=== PATIENT | female | born 1990 ===

== ENCOUNTER 2024-07-06 13:15 | Inpatient (IN) | payer OTHER ==
[~2024-07-06] VITALS: Ht 152.4 cm; Wt 74.8 kg
[2024-07-16] VITALS (9 sets, daily range): BP systolic 104–127; BP diastolic 68–84
[2024-07-16] MEDS ORDERED: AMPICILLIN SODIUM 2,000 MG VIAL ONE (06:21)
[2024-07-16] MEDS ORDERED: OXYTOCIN 20 UNITS/500ML RL PIGGYBAG IV ONE (06:25)
[2024-07-16] MEDS ORDERED: AMPICILLIN SODIUM 2,000 MG VIAL IV STA (06:50)
[2024-07-16] MEDS ORDERED: AMPICILLIN SODIUM 1,000 MG VIAL IV SCH ×2 (06:51→09:00)
[2024-07-16] MEDS ORDERED: PRENATAL TABLE1 EAC5 PO (06:54)
[2024-07-16] MEDS ORDERED: OXYTOCIN 500 ML IV ONE (07:00)
[2024-07-16] MEDS ORDERED: RINGERS SOLUTION,LACTATED 1,000 ML IV SCH (07:00)
[2024-07-16 07:24] LABS: URINE APPEARANCE Clear; URINE BILIRRUBIN Negative (NEGATIVE); URINE BLOOD Negative; URINE COLOR Yellow; URINE GLUCOSE Negative (NEGATIVE); URINE KETONE Negative (NEGATIVE); URINE LEUKOCYTE Trace; URINE NITRATE Negative; URINE PROTEIN Trace (NEGATIVE)
[2024-07-16 07:25] LABS: URINE BACTERIA 341.4 uL (0.0-1933); URINE EPITHELIAL CELLS 68.6 uL (0.0-38.8); URINE RBC 10.8 uL (0.0-20.8); URINE WBC 17.6 uL (0.0-23.2)
[2024-07-16 07:31] LABS: HEMATOCRIT 34.4 % (36.0-45.00); HEMOGLOBIN 12.1 g/dL (12.0-15.00); MEAN CELL VOLUME 93.5 fL (80.00-100.00); MEAN CORPUSCULAR HEMOGLOBIN 32.9 pg (27.00-32.0); MEAN CORPUSCULAR HGB CONC 35.1 g/dl (32.0-36.0); PLATELET COUNT 215 K/uL (150-450); RED BLOOD COUNT 3.68 M/uL (4.00-6.00); RED CELL DISTRIBUTION WIDTH 12.7 % (11.5-14.5)
[2024-07-16 07:57] LABS: INR 0.94; PARTIAL THROMBOPLASTIN TIME 28.1 SECONDS (22.0-34.0); PROTHROMBIN TIME 10.3 SECONDS (9.0-11.5)
[2024-07-16 08:13] LABS: ALBUMIN 2.6 gm/dL (3.4-5.0); BILIRUBIN TOTAL 0.44 mg/dL (0.3-1.2); CALCIUM 9.6 mg/dL (8.5-10.1); CREATININE SERUM 0.73 mg/dL (0.55-1.02); GFR 92.99; GLOBULINA 3.5 G/DL (2.4-3.5); POTASSIUM 4.17 mEq/L (3.5-5.1); TOTAL PROTEIN 6.1 gm/dL (6.4-8.2)
[2024-07-16 08:36] LABS: URINE CAST 0.61 uL (0.0-1.40); URINE CRYSTALS FEW /HPF
[2024-07-16] MEDS ORDERED: CHLORHEXIDINE GLUCONATE 120 ML BOTTLE TOP ONE (09:30)
[2024-07-16] MEDS ORDERED: ERYTHROMYCIN BASE 1 GM TUBE OP ONE (09:30)
[2024-07-16] MEDS ORDERED: OXYTOCIN 1,000 ML IV SCH (09:30)
[2024-07-16] MEDS ORDERED: OxyCODONE HCL/APAP UD (PERCOCET) PO PRN (10:15)
[2024-07-16] MEDS ORDERED: ACETAMINOPHEN 325 MG TABLET PO PRN (10:15)
[2024-07-16] MEDS ORDERED: BENZOCAINE/MENTHOL 90 ML BOTTLE TOP SCH (13:00)
[2024-07-16] MEDS ORDERED: HYDROCORTISONE 2.5% 30 GM TUBE RECTAL SCH (13:00)
[2024-07-17] VITALS: BP 104/65
[2024-07-17 02:22] LABS: HEMATOCRIT 37.1 % (36.0-45.00); HEMOGLOBIN 12.7 g/dL (12.0-15.00); MEAN CELL VOLUME 93.8 fL (80.00-100.00); MEAN CORPUSCULAR HEMOGLOBIN 32.2 pg (27.00-32.0); MEAN CORPUSCULAR HGB CONC 34.3 g/dl (32.0-36.0); PLATELET COUNT 212 K/uL (150-450); RED BLOOD COUNT 3.96 M/uL (4.00-6.00); RED CELL DISTRIBUTION WIDTH 13.1 % (11.5-14.5)
[2024-07-17 09:09] VITALS: BP 125/85
[2024-07-17 17:00] VITALS: BP 125/80
[2024-07-18 02:26] VITALS: BP 138/88
[2024-07-18 09:00] VITALS: BP 118/80
== END 2024-07-18 13:07 | disposition home or self-care (01) | DRG 807 ==
LOC: OB/GYN 07-16 05:19 → LDR 07-16 05:19 → OB/GYN 07-16 10:55
PROVIDERS: ADMIT Specialist; ATTEND Specialist
PROC: 10E0XZZ Delivery of Products of Conception, External Approach (ICD-10-PCS; principal; 2024-07-16)
PROC: 4A1HXCZ Monitoring of Products of Conception, Cardiac Rate, External Approach (ICD-10-PCS; 2024-07-17)
DX: O99.824 Streptococcus B carrier state complicating childbirth (principal); Z37.0 Single live birth; Z3A.39 39 weeks gestation of pregnancy; Z20.822 Contact with and (suspected) exposure to COVID-19; Z30.2 Encounter for sterilization